=== PATIENT | female | born 1970 | race African-American/Black ===

== ENCOUNTER 2017-11-19 21:39 | Emergency (ER) | payer BC ==
[~2017-11-19] VITALS: Ht 167.6 cm; Wt 160.8 kg
[~2017-11-19 21:39] MED LIST: LORTAB 5-325 M1 EACH PO; MOTRIN600 MG PO; SKELAXIN800 MG PO
[2017-11-19] MEDS ORDERED: ULTRAM50 MG PO (22:20)
[2017-11-19] MEDS ORDERED: BACTRIM,SEPT1 TABLET PO (22:20)
[2017-11-19] MEDS ORDERED: KEFLEX500 MG PO (22:20)
[2017-11-19 22:35] VITALS: BP 188/98
== END 2017-11-19 22:37 | disposition home or self-care (01) ==
LOC: EME 21:39 → RME 21:39
DX: T63.301A Toxic effect of unspecified spider venom, accidental (unintentional), initial encounter (principal); M25.511 Pain in right shoulder; R22.31 Localized swelling, mass and lump, right upper limb; I10 Essential (primary) hypertension; J30.2 Other seasonal allergic rhinitis; Z88.8 Allergy status to other drugs, medicaments and biological substances
CPT/HCPCS: 99281; 99283